=== PATIENT | male | born 1945 | race Caucasian/White ===

== ENCOUNTER 2017-02-01 09:07 | Observation (INO) ==
--- NOTE | 2017-02-01 09:23 | Emergency Department Note ---
Disposition Clinical Impression: Generalized weakness, History of bladder cancer UTI (urinary tract infection) Qualifiers: Urinary tract infection type: acute cystitis Hematuria presence: without hematuria Qualified Code(s): N30.00 - Acute cystitis without hematuria Disposition: Admitted As Inpatient Condition: Good General Adult HPI - General Chief complaint: ED Altered Mental Status Stated complaint: AMS Time Seen by Provider: 02/01/17 09:17 Source: patient, EMS Mode of arrival: EMS Limitations: no limitations, altered mental status Nursing Notes Reviewed: Yes Vital Signs Reviewed: Yes - History of Present Illness HPI Narrative: Pt is a 71-year-old white male who resides at a correction with a history of COPD and dementia who is brought to us by EMS this morning for fall. The squad report prior to EMS arrival stated questionable stroke but medics report that when they arrived to the correction staff stated that he was able to independently get up from his fall he is having no neurologic deficits and that they were concerned and wanted him checked out for his fall. Patient arrives awake alert and oriented 2, answering questions appropriately with no focal neurologic deficits on exam. Patient has no complaints on arrival. Patient does not use any assisted in ventilation no walkers or cane, states that he "just fell". Patient denies any pain or injuries related to the fall. Patient denies hitting his head or having any neck or back pain. Patient can tell me who he is where he is but is not sure what date it is of the week. Patient's speech is clear. Patient denies any dizziness lightheadedness and near-syncope or syncopal episodes which caused his fall. Currently patient denies any form of pain or discomfort, denies any chest pain pressure or heaviness, no shortness of breath, no diaphoresis, no nausea vomiting, no abdominal pain or back pain, no extremity pain or injury, with no obvious deformity noted. Patient was able to stand up independently in transfer himself in the room to the cot. Performed a detailed neuro assessment on patient arrival in patient with no focal neurologic deficits on examination and no complaints. Patient is on 2 L nasal cannula oxygen at all times so he was placed on 2 L on arrival. Patient has an occasional coarse sounding cough and coarse breathing with wheezing but denies any shortness of breath and no tachypnea. Pain Scale: 0 - Related Data Allergies Allergy/AdvReac Type Severity Reaction Status Date / Time No Known Allergies Allergy Verified 02/01/17 09:13 All systems ED: reviewed and negative except as stated. Constitutional: Denies: fever, chills Eyes: Denies: eye pain, vision change ENT ED: Denies: congestion Cardiovascular: Denies: chest pain, palpitations, dyspnea on exertion, orthopnea , edema, syncope Respiratory: Reports: cough. Denies: dyspnea, wheezes Gastrointestinal: Denies: abdominal pain, nausea, vomiting, diarrhea, melena, hematochezia Genitourinary: Denies: urgency, dysuria, frequency Musculoskeletal: Denies: back pain, neck pain, joint swelling, arthralgia, myalgia Integumentary: Denies: rash, abrasion Neurological: Denies: headache, weakness, numbness, paresthesias, confusion, abnormal gait, vertigo Psychiatric: Denies: anxiety, depression Hematological/Lymphatic: Denies: easy bleeding, easy bruising Allergic/Immunologic: Denies: urticaria Past Medical History - Past Medical History Medical history: Reports: COPD, dementia, hyperlipidemia, kidney stones, other - Social History Smoking Status: Current every day smoker Alcohol use: Reports: none Drug use: Reports: none Physical Exam - General Limitations: no limitations General appearance: alert, in no apparent distress - Head Head exam: atraumatic, normocephalic, normal inspection - Eye Eye exam: Present: normal appearance, PERRL, EOMI, miosis. Absent: mydriasis, periorbital swelling, periorbital tenderness - ENT ENT exam: normal exam, normal oropharynx, mucous membranes moist, TM's normal bilaterally - Neck Neck exam: Present: normal inspection, full ROM, trachea midline. Absent: tenderness, lymphadenopathy, thyromegaly - Chest Chest inspection: Present: normal inspection, symmetric chest wall rise. Absent : tenderness, rash - Respiratory Respiratory exam: Present: wheezes. Absent: respiratory distress, stridor, accessory muscle use - Cardiovascular Cardiovascular exam: Present: regular rate, normal rhythm, normal heart sounds - Abdominal Exam Abdominal exam: Present: soft, Non-Tender, normal bowel sounds. Absent: tenderness, distention, guarding, rebound, rigidity - Rectal Exam Rectal exam: Present: deferred - Extremities Exam Extremities exam: Present: normal inspection, full ROM, normal capillary refill. Absent: tenderness, pedal edema, joint swelling, calf tenderness - Back Exam Back exam: Present: normal inspection, full ROM, other (No tenderness to palpation throughout CT and L-spines, no areas of ecchymosis or contusion noted to the back). Absent: tenderness, CVA tenderness (R), CVA tenderness (L), paraspinal tenderness, vertebral tenderness - Neurological Exam Neurological exam: Present: alert, CN II-XII intact, normal gait, reflexes normal, other (Patient's speech is clear, no focal neurologic deficits, no weakness comparing right to left in the upper and lower extremities. Normal cerebellar testing.). Absent: motor sensory deficit - Psychiatric Psychiatric exam: Present: normal affect, normal mood - Skin Skin exam: Present: warm, dry, other. Absent: diaphoresis, erythema (No abrasions or contusions or areas of ecchymosis.) Course Course Narrative: Patient is a 71-year-old white male brought to us by EMS this morning status post fall. Medics deny any acute neurologic changes on their arrival to the correction. Patient arrives awake alert and oriented 2 able to answer questions appropriately with clear speech, with no focal neurologic deficits on examination. Patient denies any complaints at this time and actually states that he did not want to come to the emergency department. Patient does recall falling and denies any preceding symptoms that contributed to the fall and was able to get up independently and had no injuries related to a fall. She does have a baseline history of mild dementia so unclear but EMS insist that the staff state his mental status is at baseline for him currently he was not drowsy or altered, unclear as to why concerns for stroke were mentioned but EMS states patient has had stable mental status since their arrival to the correction he was not altered or unilaterally weak or with slurred speech on their arrival. This time we will go ahead and do an assessment of the patient's. - Reevaluation(s) Reevaluation #1: Contacted correction in which the patient resides and spoke to someone with his caregivers. Apparently they were concerned that he was having worsening infection. He was diagnosed with urinary tract infection 2 days ago and started on Cipro. He is tolerating the antibiotic well. They said last night he got up to go to the bathroom and was unsteady just generally weak and no slurred speech or concerned with focal deficits. Staff said that they normally do not have to assist him with ambulation. This morning he had a similar incident except when he was walking back towards his bed he fell. Did not sustain any injury but they said that they do not typically have to assist him and that they do not really provide that level of care at the correction. Patient also has a history of recently diagnosed bladder cancer was told he has a mass in his bladder and is awaiting further evaluation by urology. Patient's been hemodynamically stable throughout his ED course here just some general weakness which we also noticed when assisted him up to in relation to obtain a urine sample. At this time we will go ahead and cover the patient with Rocephin IV as despite over 48 hours of antibiotics his urine still looks consistent with a UTI. We will also send the urine for culture. Remainder of his workup here in the emergency Department unremarkable. CT head is negative. We will admit the patient for further evaluation of his urinary tract infection as well as possible placement upon discharge to transition back to his correction and is feeling better. Vital Signs Temperature 98.1 F 02/01/17 09:08 Pulse Rate 86 02/01/17 09:08 Respiratory Rate 18 02/01/17 09:08 Blood Pressure 131/92 02/01/17 09:08 O2 Sat by Pulse Oximetry 99 02/01/17 09:08 Temperature 97.2 F L 02/01/17 14:54 Pulse Rate 90 02/01/17 14:54 Respiratory Rate 18 02/01/17 14:54 Blood Pressure 136/88 02/01/17 14:54 O2 Sat by Pulse Oximetry 97 02/01/17 12:17 Oxygen Delivery Oxygen Delivery Room Air Medical Decision Making - Medical Records Medical records reviewed: Yes I reviewed the patient's medical records. - Lab Data Lab results reviewed: Yes I reviewed the patient's lab results. Result diagrams: 02/01/17 09:27 02/01/17 09:27 Lab Results 02/01/17 02/01/17 02/01/17 Range/Units 09:27 09:27 09:27 WBC 13.4 H (4.3-11.1) K/mcL RBC 4.08 L (4.19-5.50) M/mcL Hgb 13.0 (12.9-16.9) g/dL Hct 41.7 (37.5-50.1) % MCV 102.2 H (83.0-100.0) fL MCH 31.9 (28.0-33.3) pg MCHC 31.2 L (31.6-35.5) g/dL RDW 13.7 (11.5-14.5) % Plt Count 207 (140-400) K/mcL MPV 10.9 (9.4-12.4) fL Immature Gran % 0.6 (0-4) % Seg Neutrophils % 80.0 % Lymphocytes % 9.4 % Monocytes % 8.9 % Eosinophils % 0.7 % Basophils % 0.4 % Neutrophils # 10.7 H (1.6-8.9) K/mcL Lymphocytes # 1.3 (0.6-4.6) K/mcL Monocytes # 1.2 (0.0-1.3) K/mcL Eosinophils # 0.1 (0.0-0.6) K/mcL Basophils # 0.1 (0.0-0.2) K/mcL PT 12.9 H (9.4-12.1) Seconds INR 1.2 APTT 26.2 (26.0-36.0) Seconds Sodium 145 (136-145) mEq/L Potassium 4.0 (3.5-4.5) mEq/L Chloride 105 (98-109) mEq/L Carbon Dioxide 33 H (19-29) mEq/L BUN 16 (8-26) mg/dL Creatinine 1.10 (0.72-1.25) mg/dL Est GFR ( Amer) > 60 (> 60) Est GFR (Non-Af Amer) > 60 (> 60) BUN/Creatinine Ratio 15 (6-26) Glucose 121 H (70-99) mg/dL Calculated Osmolality 302 H (280-300) Calcium 9.6 (8.6-10.8) mg/dL Total Bilirubin 0.4 (0.2-1.2) mg/dL Direct Bilirubin 0.2 (0.0-0.5) mg/dL Indirect Bilirubin 0.2 (0.0-1.2) mg/dL AST 23 (5-34) Units/L ALT 19 (0-55) Units/L Alkaline Phosphatase 78 (38-126) Units/L Troponin I (0-0.03) ng/mL Serum Total Protein 7.6 (6.0-8.3) g/dL Albumin 3.1 L (3.5-5.0) g/dL Globulin 4.5 H (2.4-3.5) g/dL Albumin/Globulin Ratio 0.7 L (1.1-2.2) TSH (0.350-4.840) mcIU/mL Urine Color (Yellow) Urine Clarity (Clear) Urine pH (5.0-8.0) pH Units Ur Specific Buna (1.010-1.025) Urine Protein (Neg-Trace) mg/dL Urine Glucose (UA) (Normal) mg/dL Urine Ketones (Negative) mg/dL Urine Blood (Negative) Urine Nitrite (Negative) Urine Bilirubin (Negative) Urine Urobilinogen (Normal) mg/dL Ur Leukocyte Esterase (Negative) Urine Microscopic RBC (0-3) per hpf Urine Microscopic WBC (0-3) per hpf Ur Squamous Epith Cells (None-Few) per lpf Urine Bacteria (None-Few) per hpf Hyaline Casts (None-Few) per lpf Ur Culture Indicated? (NO) Urine Opiates Screen (Irbwln=623) ng/mL Ur Barbiturates Screen (Ditftz=860) ng/mL Ur Phencyclidine Scrn (Cutoff=25) ng/mL Ur Amphetamines Screen (Kigafr=6953) ng/mL U Benzodiazepines Scrn (Rkzjmt=750) ng/mL Urine Cocaine Screen (Cutoff= 300) ng/mL U Marijuana (THC) Screen (Cutoff = 50) ng/mL Ethyl Alcohol < 10 (0-10) mg/dL 02/01/17 02/01/17 02/01/17 Range/Units 09:27 09:27 11:30 WBC (4.3-11.1) K/mcL RBC (4.19-5.50) M/mcL Hgb (12.9-16.9) g/dL Hct (37.5-50.1) % MCV (83.0-100.0) fL MCH (28.0-33.3) pg MCHC (31.6-35.5) g/dL RDW (11.5-14.5) % Plt Count (140-400) K/mcL MPV (9.4-12.4) fL Immature Gran % (0-4) % Seg Neutrophils % % Lymphocytes % % Monocytes % % Eosinophils % % Basophils % % Neutrophils # (1.6-8.9) K/mcL Lymphocytes # (0.6-4.6) K/mcL Monocytes # (0.0-1.3) K/mcL Eosinophils # (0.0-0.6) K/mcL Basophils # (0.0-0.2) K/mcL PT (9.4-12.1) Seconds INR APTT (26.0-36.0) Seconds Sodium (136-145) mEq/L Potassium (3.5-4.5) mEq/L Chloride (98-109) mEq/L Carbon Dioxide (19-29) mEq/L BUN (8-26) mg/dL Creatinine (0.72-1.25) mg/dL Est GFR ( Amer) (> 60) Est GFR (Non-Af Amer) (> 60) BUN/Creatinine Ratio (6-26) Glucose (70-99) mg/dL Calculated Osmolality (280-300) Calcium (8.6-10.8) mg/dL Total Bilirubin (0.2-1.2) mg/dL Direct Bilirubin (0.0-0.5) mg/dL Indirect Bilirubin (0.0-1.2) mg/dL AST (5-34) Units/L ALT (0-55) Units/L Alkaline Phosphatase (38-126) Units/L Troponin I 0.02 (0-0.03) ng/mL Serum Total Protein (6.0-8.3) g/dL Albumin (3.5-5.0) g/dL Globulin (2.4-3.5) g/dL Albumin/Globulin Ratio (1.1-2.2) TSH 1.666 (0.350-4.840) mcIU/mL Urine Color Dark Yellow (Yellow) Urine Clarity Cloudy A (Clear) Urine pH 6.0 (5.0-8.0) pH Units Ur Specific Buna 1.030 H (1.010-1.025) Urine Protein 100 H (Neg-Trace) mg/dL Urine Glucose (UA) Normal (Normal) mg/dL Urine Ketones Negative (Negative) mg/dL Urine Blood Large H (Negative) Urine Nitrite Negative (Negative) Urine Bilirubin Small H (Negative) Urine Urobilinogen Normal (Normal) mg/dL Ur Leukocyte Esterase Moderate H (Negative) Urine Microscopic RBC TNTC H (0-3) per hpf Urine Microscopic WBC TNTC H (0-3) per hpf Ur Squamous Epith Cells Moderate H (None-Few) per lpf Urine Bacteria Moderate H (None-Few) per hpf Hyaline Casts None Seen (None-Few) per lpf Ur Culture Indicated? YES A (NO) Urine Opiates Screen (Ayabrr=744) ng/mL Ur Barbiturates Screen (Himmid=286) ng/mL Ur Phencyclidine Scrn (Cutoff=25) ng/mL Ur Amphetamines Screen (Nyczek=5906) ng/mL U Benzodiazepines Scrn (Hfqseh=505) ng/mL Urine Cocaine Screen (Cutoff= 300) ng/mL U Marijuana (THC) Screen (Cutoff = 50) ng/mL Ethyl Alcohol (0-10) mg/dL 02/01/17 Range/Units 11:30 WBC (4.3-11.1) K/mcL RBC (4.19-5.50) M/mcL Hgb (12.9-16.9) g/dL Hct (37.5-50.1) % MCV (83.0-100.0) fL MCH (28.0-33.3) pg MCHC (31.6-35.5) g/dL RDW (11.5-14.5) % Plt Count (140-400) K/mcL MPV (9.4-12.4) fL Immature Gran % (0-4) % Seg Neutrophils % % Lymphocytes % % Monocytes % % Eosinophils % % Basophils % % Neutrophils # (1.6-8.9) K/mcL Lymphocytes # (0.6-4.6) K/mcL Monocytes # (0.0-1.3) K/mcL Eosinophils # (0.0-0.6) K/mcL Basophils # (0.0-0.2) K/mcL PT (9.4-12.1) Seconds INR APTT (26.0-36.0) Seconds Sodium (136-145) mEq/L Potassium (3.5-4.5) mEq/L Chloride (98-109) mEq/L Carbon Dioxide (19-29) mEq/L BUN (8-26) mg/dL Creatinine (0.72-1.25) mg/dL Est GFR ( Amer) (> 60) Est GFR (Non-Af Amer) (> 60) BUN/Creatinine Ratio (6-26) Glucose (70-99) mg/dL Calculated Osmolality (280-300) Calcium (8.6-10.8) mg/dL Total Bilirubin (0.2-1.2) mg/dL Direct Bilirubin (0.0-0.5) mg/dL Indirect Bilirubin (0.0-1.2) mg/dL AST (5-34) Units/L ALT (0-55) Units/L Alkaline Phosphatase (38-126) Units/L Troponin I (0-0.03) ng/mL Serum Total Protein (6.0-8.3) g/dL Albumin (3.5-5.0) g/dL Globulin (2.4-3.5) g/dL Albumin/Globulin Ratio (1.1-2.2) TSH (0.350-4.840) mcIU/mL Urine Color (Yellow) Urine Clarity (Clear) Urine pH (5.0-8.0) pH Units Ur Specific Buna (1.010-1.025) Urine Protein (Neg-Trace) mg/dL Urine Glucose (UA) (Normal) mg/dL Urine Ketones (Negative) mg/dL Urine Blood (Negative) Urine Nitrite (Negative) Urine Bilirubin (Negative) Urine Urobilinogen (Normal) mg/dL Ur Leukocyte Esterase (Negative) Urine Microscopic RBC (0-3) per hpf Urine Microscopic WBC (0-3) per hpf Ur Squamous Epith Cells (None-Few) per lpf Urine Bacteria (None-Few) per hpf Hyaline Casts (None-Few) per lpf Ur Culture Indicated? (NO) Urine Opiates Screen Negative (Tjkcip=547) ng/mL Ur Barbiturates Screen Negative (Dxudtz=814) ng/mL Ur Phencyclidine Scrn Negative (Cutoff=25) ng/mL Ur Amphetamines Screen Negative (Sxkfod=8728) ng/mL U Benzodiazepines Scrn Negative (Ieogog=237) ng/mL Urine Cocaine Screen Negative (Cutoff= 300) ng/mL U Marijuana (THC) Screen Negative (Cutoff = 50) ng/mL Ethyl Alcohol (0-10) mg/dL - Radiology Data Radiology results reviewed: Yes I reviewed the patient's radiology results. Chest X-Ray 02/01/17 09:17 IMPRESSION: No acute cardiopulmonary disease. D/ / Noah Mancilla MD / Noah Mancilla MD Interpreting Provider: Noah Mancilla MD Head CT 02/01/17 09:18 IMPRESSION: Motion artifact degrades the images. There is cerebral atrophy and chronic small vessel ischemic changes. No acute intracranial abnormality. D/ / 02/01/2017 11:19:41 Sheridan Dominguez MD / Inessa King Interpreting Provider: Sheridan Dominguez MD - EKG Data EKG #1 EKG results narrative: EKG shows normal sinus rhythm at 86 bpm with no acute ST or T-wave changes.
[2017-02-01 09:34] LABS: Basophils # 0.1 K/mcL (0.0-0.2); Basophils % 0.4 %; Eosinophils # 0.1 K/mcL (0.0-0.6); Eosinophils % 0.7 %; Hematocrit 41.7 % (37.5-50.1); Immature Granulocytes % 0.6 % (0-4); Lymphocytes # 1.3 K/mcL (0.6-4.6); Lymphocytes % 9.4 %; Mean Corpuscular HGB Conc 31.2 g/dL (31.6-35.5); Mean Corpuscular Hemoglobin 31.9 pg (28.0-33.3); Mean Corpuscular Volume 102.2 fL (83.0-100.0); Mean Platelet Volume 10.9 fL (9.4-12.4); Monocytes # 1.2 K/mcL (0.0-1.3); Monocytes % 8.9 %; Neutrophils # 10.7 K/mcL (1.6-8.9); Platelet Count 207 K/mcL (140-400); Red Blood Count 4.08 M/mcL (4.19-5.50); Red Cell Distribution Width 13.7 % (11.5-14.5)
[2017-02-01 09:43] LABS: INR 1.2; Prothrombin Time 12.9 Seconds (9.4-12.1)
[2017-02-01 09:45] LABS: Activated Partial Thrombo Time 26.2 Seconds (26.0-36.0)
[2017-02-01 09:49] LABS: BUN/Creatinine Ratio 15 (6-26); Blood Urea Nitrogen 16 mg/dL (8-26); Carbon Dioxide 33 mEq/L (19-29); Chloride 105 mEq/L (98-109); Sodium 145 mEq/L (136-145)
[2017-02-01 09:50] LABS: Alanine Aminotransferase 19 Units/L (0-55); Albumin 3.1 g/dL (3.5-5.0); Albumin/Globulin Ratio 0.7 (1.1-2.2); Alkaline Phosphatase 78 Units/L (38-126); Aspartate Amino Transferase 23 Units/L (5-34); Bilirubin,Direct 0.2 mg/dL (0.0-0.5); Bilirubin,Indirect 0.2 mg/dL (0.0-1.2); Bilirubin,Total 0.4 mg/dL (0.2-1.2); Calcium 9.6 mg/dL (8.6-10.8); Globulin 4.5 g/dL (2.4-3.5); Glucose 121 mg/dL (70-99); Osmolality,Calculated 302 (280-300); Total Protein 7.6 g/dL (6.0-8.3); eGFR For African Americans > 60 (> 60); eGFR For Non-African Americans > 60 (> 60)
[2017-02-01 09:53] LABS: Ethanol < 10 mg/dL (0-10)
[2017-02-01 11:57] LABS: Bilirubin,Urine Small (Negative); Blood,Urine Large (Negative); Clarity,Urine Cloudy (Clear); Color,Urine Dark Yellow (Yellow); Glucose,Urine (UA) Normal (Normal); Ketones,Urine Negative (Negative); Leukocyte Esterase,Urine Moderate (Negative); Nitrite,Urine Negative (Negative); Protein,Urine 100 mg/dL (Neg-Trace); Urobilinogen,Urine Normal (Normal)
[2017-02-01 11:58] LABS: Bacteria,Urine Moderate per hpf (None-Few); Hyaline Casts,Urine None Seen per lpf (None-Few); RBC,Urine TNTC per hpf (0-3); Squamous Epithelial Cell,Urine Moderate per lpf (None-Few); WBC,Urine TNTC per hpf (0-3)
[2017-02-01 12:06] LABS: Amphetamine Screen,Urine Negative ng/mL (Cutoff=1000); Barbiturate Screen,Urine Negative ng/mL (Cutoff=200); Benzodiazepines Screen,Urine Negative ng/mL (Cutoff=200); Cannabinoid Screen,Urine Negative ng/mL (Cutoff = 50); Cocaine Screen,Urine Negative ng/mL (Cutoff= 300); Opiate Screen,Urine Negative ng/mL (Cutoff=300); Phencyclidine Screen,Urine Negative ng/mL (Cutoff=25)
[2017-02-01] MEDS ORDERED: Naloxone 0.4 MG/ML INJ IVP PRN (14:24)
[2017-02-01] MEDS ORDERED: Acetaminophen 325 MG TABLET PO PRN (14:24)
--- NOTE | 2017-02-01 14:29 | Internal Med History&Physical ---
<Kathy Dhaliwal M - Last Filed: 02/01/17 14:26> Date of Encounter: 02/01/17 Time of Encounter: 14:27 Assessment and Plan (1) UTI (urinary tract infection) Current visit: Yes Status: Acute UA consistent with UTI. WBC elevated to 13.4. Patient denies any dysuria or complaints. Rocephin IVPB daily. Qualifiers: Urinary tract infection type: acute cystitis Hematuria presence: without hematuria Qualified Code(s): N30.00 - Acute cystitis without hematuria (2) Dementia Current visit: Yes Status: Acute Patient with dementia. Oriented to person only. Will continue home doses of medications once reconciled and verified. 2mg Haldol IVP HS PRN for agitation. Bed alarm and fall precautions. SWK consulted for discharge planning and possible placement. Qualifiers: Dementia type: unspecified type Dementia behavioral disturbance: without behavioral disturbance Qualified Code(s): F03.90 - Unspecified dementia without behavioral disturbance (3) Fall Current visit: Yes Status: Acute Patient reportedly suffered a mechanical fall at his long term. He has dementia and does not recall falling and cannot relay the events. CT of the head showed cerebral atrophy and chronic small vessel ischemia. Exam reveals no new neurologic deficits, or evidence of trauma. Fall precautions and bed alarm. Qualifiers: Encounter type: initial encounter Qualified Code(s): W19.XXXA - Unspecified fall, initial encounter (4) COPD (chronic obstructive pulmonary disease) Current visit: Yes Status: Acute Patient with COPD diagnosis and continues to smoke. Denies shortness of breath or coughing. CXR shows no acute disease. albuterol inhaler q4hr PRN budesonide/formotorol BID Qualifiers: COPD type: unspecified COPD Qualified Code(s): J44.9 - Chronic obstructive pulmonary disease, unspecified (5) DVT prophylaxis Current visit: Yes Status: Acute sequential compression devices Internal Medicine - H&P: HPI Chief complaint: fall Admitted From: Emergency Dept Plans for Post Hospital Care: Transfer Other (long term) History of present illness: Mr. Seymour is a 71 year old male with COPD, hyperlipidemia, and dementia who resides in a long term was sent to the emergency department today after suffering a mechanical fall in his long term. Patient is a poor historian, alert and oriented 1 only, denies any complaints, and denies any recollection of his fall. Evaluation in the emergency department revealed elevated white blood cell count of 13.4, urinalysis was positive for UTI, CT of the head showed cerebral atrophy and chronic small vessel ischemic changes, chest x-ray showed no acute cardiopulmonary disease. EKG showed normal sinus rhythm. Troponin was normal at 0.02. Other labs were grossly normal. On exam, patient alert and oriented 1. Cranial nerves intact, no pronator drift, strength equal bilaterally. Heart had regular rate and rhythm, lungs clear to auscultation bilaterally. No peripheral edema. Past Med Surg Social Fam HX - Past Medical History Medical history: COPD, dementia, hyperlipidemia, kidney stones, other - Social History Smoking Status: Current every day smoker Alcohol use: none Drug use: none Current living situation: Correction - Family History Mother History Unknown: Yes Father History Unknown: Yes Internal Medicine - H&P: Meds 3 Allergy/AdvReac Type Severity Reaction Status Date / Time No Known Allergies Allergy Verified 02/01/17 09:13 All Systems PM: A 10-system review of systems was performed and is negative for pertinent findings except as documented above in the HPI. - Constitutional Constitutional: no chills, no fever(s), no night sweats - EENT Eyes: no change in vision, no discharge, no pain, no photophobia Ears: no ear discharge, no ear pain, no tinnitus Nose, mouth and throat: no dysphagia, no nasal discharge, no neck pain, no sore throat - Cardiovascular Cardiovascular ROS IM: no chest pain, no diaphoresis, no dyspnea, no lightheadedness, no palpitations, no syncope - Respiratory Respiratory: no cough, no dyspnea, no wheezing, no excessive phlegm production - Gastrointestinal Gastrointestinal: no abdominal pain, no diarrhea, no hematemesis, no hematochezia, no melena, no nausea, no vomiting - Musculoskeletal Musculoskeletal ROS IM: no numbness, no tingling - Integumentary Integumentary IM: no rash, no unusual bruising - Neurological Neurological ROS: no confusion, no convulsions, no focal weakness, no numbness, no tingling, no tremor(s) - Hematologic/Lymphatic Hematologic/Lymphatic: no easy bruising - Constitutional Vitals: Temp Pulse Resp BP Pulse Ox 98.1 F 86 18 131/92 99 02/01/17 09:08 02/01/17 09:08 02/01/17 09:08 02/01/17 09:08 02/01/17 09:08 General appearance: Present: cooperative, A&O X 1, pleasant, no acute distress - Head Head exam: Present: atraumatic, normocephalic - Eye Eye exam: Present: PERRL, conjuntiva pink, sclera anicteric Pupils: Present: PERRL - Neck Neck exam general surgery: Present: supple, trachea midline. Absent: lymphadenopathy - Respiratory Respiratory exam: Present: CTAB. Absent: accessory muscle use, rales, rhonchi, wheezes - Cardiovascular Cardiovascular exam: Present: RRR, +S1, +S2. Absent: diastolic murmur, gallop, rubs, systolic murmur - GI/Abdominal GI/Abdominal exam: Present: normal bowel sounds, soft, no peritoneal signs. Absent: distended, tenderness - Extremities Exam Extremities exam: Present: warm, radial pulses palpable and symmetrical. Absent : calf tenderness, cyanotic, pedal edema - Neurological Exam Neurological exam: Present: CN II-XII intact, no focal deficits, strengths equal and symetr throughout. Absent: pronater drift, facial droop, speech deficit - Expanded Neurological Exam Patient oriented to: Present: person Cranial Nerves: EOM's intact PM: Normal, gag reflex PM: Normal, nystagmus PM: Normal, tongue deviation PM: Normal Cerebellar function: finger to nose: Normal Neuro motor strength exam: LUE: 5, RUE: 5, LLE: 5, RLE: 5 - Skin Skin exam: Present: dry, intact Internal Med - H&P Results - Labs CBC & Chem 7: 02/01/17 09:27 02/01/17 09:27 Labs: All Lab Results (24 Hours) 02/01/17 02/01/17 02/01/17 Range/Units 09:27 09:27 09:27 WBC 13.4 H (4.3-11.1) K/mcL RBC 4.08 L (4.19-5.50) M/mcL Hgb 13.0 (12.9-16.9) g/dL Hct 41.7 (37.5-50.1) % MCV 102.2 H (83.0-100.0) fL MCH 31.9 (28.0-33.3) pg MCHC 31.2 L (31.6-35.5) g/dL RDW 13.7 (11.5-14.5) % Plt Count 207 (140-400) K/mcL MPV 10.9 (9.4-12.4) fL Immature Gran % 0.6 (0-4) % Seg Neutrophils % 80.0 % Lymphocytes % 9.4 % Monocytes % 8.9 % Eosinophils % 0.7 % Basophils % 0.4 % Neutrophils # 10.7 H (1.6-8.9) K/mcL Lymphocytes # 1.3 (0.6-4.6) K/mcL Monocytes # 1.2 (0.0-1.3) K/mcL Eosinophils # 0.1 (0.0-0.6) K/mcL Basophils # 0.1 (0.0-0.2) K/mcL PT 12.9 H (9.4-12.1) Seconds INR 1.2 APTT 26.2 (26.0-36.0) Seconds Sodium 145 (136-145) mEq/L Potassium 4.0 (3.5-4.5) mEq/L Chloride 105 (98-109) mEq/L Carbon Dioxide 33 H (19-29) mEq/L BUN 16 (8-26) mg/dL Creatinine 1.10 (0.72-1.25) mg/dL Est GFR ( Amer) > 60 (> 60) Est GFR (Non-Af Amer) > 60 (> 60) BUN/Creatinine Ratio 15 (6-26) Glucose 121 H (70-99) mg/dL Calculated Osmolality 302 H (280-300) Calcium 9.6 (8.6-10.8) mg/dL Total Bilirubin 0.4 (0.2-1.2) mg/dL Direct Bilirubin 0.2 (0.0-0.5) mg/dL Indirect Bilirubin 0.2 (0.0-1.2) mg/dL AST 23 (5-34) Units/L ALT 19 (0-55) Units/L Alkaline Phosphatase 78 (38-126) Units/L Troponin I (0-0.03) ng/mL Serum Total Protein 7.6 (6.0-8.3) g/dL Albumin 3.1 L (3.5-5.0) g/dL Globulin 4.5 H (2.4-3.5) g/dL Albumin/Globulin Ratio 0.7 L (1.1-2.2) TSH (0.350-4.840) mcIU/mL Urine Color (Yellow) Urine Clarity (Clear) Urine pH (5.0-8.0) pH Units Ur Specific [place] (1.010-1.025) Urine Protein (Neg-Trace) mg/dL Urine Glucose (UA) (Normal) mg/dL Urine Ketones (Negative) mg/dL Urine Blood (Negative) Urine Nitrite (Negative) Urine Bilirubin (Negative) Urine Urobilinogen (Normal) mg/dL Ur Leukocyte Esterase (Negative) Urine Microscopic RBC (0-3) per hpf Urine Microscopic WBC (0-3) per hpf Ur Squamous Epith Cells (None-Few) per lpf Urine Bacteria (None-Few) per hpf Hyaline Casts (None-Few) per lpf Ur Culture Indicated? (NO) Urine Opiates Screen (Qshkjq=151) ng/mL Ur Barbiturates Screen (Ixfrsw=953) ng/mL Ur Phencyclidine Scrn (Cutoff=25) ng/mL Ur Amphetamines Screen (Wdzjqp=4132) ng/mL U Benzodiazepines Scrn (Wunsjh=960) ng/mL Urine Cocaine Screen (Cutoff= 300) ng/mL U Marijuana (THC) Screen (Cutoff = 50) ng/mL Ethyl Alcohol < 10 (0-10) mg/dL 02/01/17 02/01/17 02/01/17 Range/Units 09:27 09:27 11:30 WBC (4.3-11.1) K/mcL RBC (4.19-5.50) M/mcL Hgb (12.9-16.9) g/dL Hct (37.5-50.1) % MCV (83.0-100.0) fL MCH (28.0-33.3) pg MCHC (31.6-35.5) g/dL RDW (11.5-14.5) % Plt Count (140-400) K/mcL MPV (9.4-12.4) fL Immature Gran % (0-4) % Seg Neutrophils % % Lymphocytes % % Monocytes % % Eosinophils % % Basophils % % Neutrophils # (1.6-8.9) K/mcL Lymphocytes # (0.6-4.6) K/mcL Monocytes # (0.0-1.3) K/mcL Eosinophils # (0.0-0.6) K/mcL Basophils # (0.0-0.2) K/mcL PT (9.4-12.1) Seconds INR APTT (26.0-36.0) Seconds Sodium (136-145) mEq/L Potassium (3.5-4.5) mEq/L Chloride (98-109) mEq/L Carbon Dioxide (19-29) mEq/L BUN (8-26) mg/dL Creatinine (0.72-1.25) mg/dL Est GFR ( Amer) (> 60) Est GFR (Non-Af Amer) (> 60) BUN/Creatinine Ratio (6-26) Glucose (70-99) mg/dL Calculated Osmolality (280-300) Calcium (8.6-10.8) mg/dL Total Bilirubin (0.2-1.2) mg/dL Direct Bilirubin (0.0-0.5) mg/dL Indirect Bilirubin (0.0-1.2) mg/dL AST (5-34) Units/L ALT (0-55) Units/L Alkaline Phosphatase (38-126) Units/L Troponin I 0.02 (0-0.03) ng/mL Serum Total Protein (6.0-8.3) g/dL Albumin (3.5-5.0) g/dL Globulin (2.4-3.5) g/dL Albumin/Globulin Ratio (1.1-2.2) TSH 1.666 (0.350-4.840) mcIU/mL Urine Color Dark Yellow (Yellow) Urine Clarity Cloudy A (Clear) Urine pH 6.0 (5.0-8.0) pH Units Ur Specific [place] 1.030 H (1.010-1.025) Urine Protein 100 H (Neg-Trace) mg/dL Urine Glucose (UA) Normal (Normal) mg/dL Urine Ketones Negative (Negative) mg/dL Urine Blood Large H (Negative) Urine Nitrite Negative (Negative) Urine Bilirubin Small H (Negative) Urine Urobilinogen Normal (Normal) mg/dL Ur Leukocyte Esterase Moderate H (Negative) Urine Microscopic RBC TNTC H (0-3) per hpf Urine Microscopic WBC TNTC H (0-3) per hpf Ur Squamous Epith Cells Moderate H (None-Few) per lpf Urine Bacteria Moderate H (None-Few) per hpf Hyaline Casts None Seen (None-Few) per lpf Ur Culture Indicated? YES A (NO) Urine Opiates Screen (Ndvufu=137) ng/mL Ur Barbiturates Screen (Pffwib=076) ng/mL Ur Phencyclidine Scrn (Cutoff=25) ng/mL Ur Amphetamines Screen (Iqfynu=0998) ng/mL U Benzodiazepines Scrn (Qcxvfa=782) ng/mL Urine Cocaine Screen (Cutoff= 300) ng/mL U Marijuana (THC) Screen (Cutoff = 50) ng/mL Ethyl Alcohol (0-10) mg/dL 02/01/17 Range/Units 11:30 WBC (4.3-11.1) K/mcL RBC (4.19-5.50) M/mcL Hgb (12.9-16.9) g/dL Hct (37.5-50.1) % MCV (83.0-100.0) fL MCH (28.0-33.3) pg MCHC (31.6-35.5) g/dL RDW (11.5-14.5) % Plt Count (140-400) K/mcL MPV (9.4-12.4) fL Immature Gran % (0-4) % Seg Neutrophils % % Lymphocytes % % Monocytes % % Eosinophils % % Basophils % % Neutrophils # (1.6-8.9) K/mcL Lymphocytes # (0.6-4.6) K/mcL Monocytes # (0.0-1.3) K/mcL Eosinophils # (0.0-0.6) K/mcL Basophils # (0.0-0.2) K/mcL PT (9.4-12.1) Seconds INR APTT (26.0-36.0) Seconds Sodium (136-145) mEq/L Potassium (3.5-4.5) mEq/L Chloride (98-109) mEq/L Carbon Dioxide (19-29) mEq/L BUN (8-26) mg/dL Creatinine (0.72-1.25) mg/dL Est GFR ( Amer) (> 60) Est GFR (Non-Af Amer) (> 60) BUN/Creatinine Ratio (6-26) Glucose (70-99) mg/dL Calculated Osmolality (280-300) Calcium (8.6-10.8) mg/dL Total Bilirubin (0.2-1.2) mg/dL Direct Bilirubin (0.0-0.5) mg/dL Indirect Bilirubin (0.0-1.2) mg/dL AST (5-34) Units/L ALT (0-55) Units/L Alkaline Phosphatase (38-126) Units/L Troponin I (0-0.03) ng/mL Serum Total Protein (6.0-8.3) g/dL Albumin (3.5-5.0) g/dL Globulin (2.4-3.5) g/dL Albumin/Globulin Ratio (1.1-2.2) TSH (0.350-4.840) mcIU/mL Urine Color (Yellow) Urine Clarity (Clear) Urine pH (5.0-8.0) pH Units Ur Specific [place] (1.010-1.025) Urine Protein (Neg-Trace) mg/dL Urine Glucose (UA) (Normal) mg/dL Urine Ketones (Negative) mg/dL Urine Blood (Negative) Urine Nitrite (Negative) Urine Bilirubin (Negative) Urine Urobilinogen (Normal) mg/dL Ur Leukocyte Esterase (Negative) Urine Microscopic RBC (0-3) per hpf Urine Microscopic WBC (0-3) per hpf Ur Squamous Epith Cells (None-Few) per lpf Urine Bacteria (None-Few) per hpf Hyaline Casts (None-Few) per lpf Ur Culture Indicated? (NO) Urine Opiates Screen Negative (Sojhhe=192) ng/mL Ur Barbiturates Screen Negative (Detvdo=521) ng/mL Ur Phencyclidine Scrn Negative (Cutoff=25) ng/mL Ur Amphetamines Screen Negative (Eobfbn=9255) ng/mL U Benzodiazepines Scrn Negative (Htgulp=039) ng/mL Urine Cocaine Screen Negative (Cutoff= 300) ng/mL U Marijuana (THC) Screen Negative (Cutoff = 50) ng/mL Ethyl Alcohol (0-10) mg/dL - Diagnostic Studies CT scan - head Additional comments: Head CT 02/01/17 09:18 IMPRESSION: Motion artifact degrades the images. There is cerebral atrophy and chronic small vessel ischemic changes. No acute intracranial abnormality. D/ / 02/01/2017 11:19:41 Sheridan Dominguez MD / Inessa King Interpreting Provider: Sheridan Dominguez MD Chest x-ray Additional comments: Chest X-Ray 02/01/17 09:17 IMPRESSION: No acute cardiopulmonary disease. D/ / Noah Mancilla MD / Noah Mancilla MD Interpreting Provider: Noah Mancilla MD <Roxana Morgan - Last Filed: 02/03/17 08:19> Date of Encounter: 02/01/17 Time of Encounter: 18:50 Internal Medicine - H&P: HPI History of present illness: Mr. Seymour is a 71 year old male All Systems PM: A 10-system review of systems was performed and is negative for pertinent findings except as documented above in the HPI. - Constitutional Vitals: Temp Pulse Resp BP Pulse Ox 98.2 F 72 16 127/78 96 02/03/17 07:37 02/03/17 07:37 02/03/17 07:37 02/03/17 07:37 02/03/17 07:37 Internal Med - H&P Results - Labs CBC & Chem 7: 02/03/17 06:20 02/03/17 06:20 Labs: Short CBC 02/03/17 Range/Units 06:20 WBC 8.3 (4.3-11.1) K/mcL Hgb 11.5 L (12.9-16.9) g/dL Hct 37.0 L (37.5-50.1) % Plt Count 214 (140-400) K/mcL Neutrophils # 5.5 (1.6-8.9) K/mcL BMP 02/03/17 06:20 Sodium 143 Potassium 3.6 Chloride 103 Carbon Dioxide 27 BUN 14 Creatinine 0.94 Glucose 114 H Calcium 8.9 - Attending Attestation Pt independently seen and examined. Admitted s/p fall, UTI, has underlying dementia. Will need geriatric social worker consultation for placement. Case discussed with CARLOS Dhaliwal, I agree with her documented findings, assessment,and plan.
[2017-02-01] MEDS ORDERED: Haloperidol Lactate 5 MG/ML VIAL IVP PRN (14:43)
[2017-02-01] MEDS: Ipratropium/Albuterol Neb 3 ML IH SCH ×2 (16:48→22:47)
[2017-02-01] MEDS: Budesonide/Formoterol 160/4.5 MDI IH SCH (22:47)
[2017-02-02] MEDS: Ipratropium/Albuterol Neb 3 ML IH SCH ×4 (04:02→22:55)
[2017-02-02 05:44] LABS: Basophils # 0.1 K/mcL (0.0-0.2); Basophils % 0.6 %; Eosinophils # 0.3 K/mcL (0.0-0.6); Hematocrit 37.7 % (37.5-50.1); Hemoglobin 11.9 g/dL (12.9-16.9); Immature Granulocytes % 0.3 % (0-4); Lymphocytes # 1.4 K/mcL (0.6-4.6); Lymphocytes % 15.4 %; Mean Corpuscular HGB Conc 31.6 g/dL (31.6-35.5); Mean Corpuscular Hemoglobin 31.9 pg (28.0-33.3); Mean Corpuscular Volume 101.1 fL (83.0-100.0); Mean Platelet Volume 11.7 fL (9.4-12.4); Monocytes # 0.9 K/mcL (0.0-1.3); Monocytes % 10.1 %; Neutrophils # 6.3 K/mcL (1.6-8.9); Platelet Count 201 K/mcL (140-400); Red Blood Count 3.73 M/mcL (4.19-5.50); Red Cell Distribution Width 13.7 % (11.5-14.5); Segmented Neutrophils % 70.6 %
[2017-02-02 05:57] LABS: BUN/Creatinine Ratio 16 (6-26); Blood Urea Nitrogen 15 mg/dL (8-26); Calcium 8.8 mg/dL (8.6-10.8); Chloride 106 mEq/L (98-109); Glucose 112 mg/dL (70-99); Osmolality,Calculated 302 (280-300); Potassium 3.7 mEq/L (3.5-4.5); Sodium 145 mEq/L (136-145); eGFR For African Americans > 60 (> 60); eGFR For Non-African Americans > 60 (> 60)
--- NOTE | 2017-02-02 06:21 | Electrocardiograph Report ---
[facility] Test Date: 2017-02-01 Pat Name: Landon Seymour Department: 0 Room: 3A62 Gender: M Food Service Helper: : 1945 Requested By: Perla Moore Order Number: [id number] Reading MD: Eddie Bui MD Measurements Intervals [place] Rate: 86 P: 79 MO: 155 QRS: 50 QRSD: 86 T: 59 QT: 352 QTc: 395 Interpretive Statements SINUS RHYTHM Electronically Signed On 02-02-2017 6:19:21 EDT by Eddie Bui MD
[2017-02-02 06:27] LABS: Carbon Dioxide 30 mEq/L (19-29)
[2017-02-02] MEDS: Budesonide/Formoterol 160/4.5 MDI IH SCH ×2 (10:46→22:55)
--- NOTE | 2017-02-02 13:00 | Internal Med Progress Note ---
Date of Encounter: 02/02/17 Time of Encounter: 12:58 - Assessment and plan (1) UTI (urinary tract infection) Current Visit: Yes Status: Acute Assessment and plan: Reviewed his labs and UA His WBC trending down cont empirical abx Rocephin for now will f/u on Urine cx Qualifiers: Urinary tract infection type: acute cystitis Hematuria presence: without hematuria Qualified Code(s): N30.00 - Acute cystitis without hematuria (2) Generalized weakness Current Visit: Yes Status: Acute Assessment and plan: probably due to UTI with underline dementia PT / OT eval - P (3) Physical deconditioning Current Visit: Yes Status: Acute (4) Fall Current Visit: Yes Status: Acute Qualifiers: Encounter type: initial encounter Qualified Code(s): W19.XXXA - Unspecified fall, initial encounter (5) COPD (chronic obstructive pulmonary disease) Current Visit: Yes Status: Chronic Assessment and plan: not in exacerbation cont him on Duoneb PRN and Symbicort Qualifiers: COPD type: unspecified COPD Qualified Code(s): J44.9 - Chronic obstructive pulmonary disease, unspecified (6) DVT prophylaxis Current Visit: Yes Status: Acute Assessment and plan: will put him on lovenox SQ inj - Subjective Interval history: Mr. Seymour is a 71 year old male with COPD, hyperlipidemia, and dementia who resides in a longterm was sent to the emergency department today after suffering a mechanical fall in his longterm. Patient is a poor historian, alert and oriented 1 only, denies any complaints, and denies any recollection of his fall. Evaluation in the emergency department revealed elevated white blood cell count of 13.4, urinalysis was positive for UTI, CT of the head showed cerebral atrophy and chronic small vessel ischemic changes, chest x-ray showed no acute cardiopulmonary disease. EKG showed normal sinus rhythm. Troponin was normal at 0.02. Pt was admitted for acute UTI and started him on empirical abx Rocephin. He is more alert, awake and O to self only. Seems to be pt is at his baseline mentation mendez - Constitutional Vitals: Temp Pulse Resp BP Pulse Ox 98.1 F 84 13 131/76 94 02/02/17 11:51 02/02/17 11:51 02/02/17 11:51 02/02/17 11:51 02/02/17 11:51 General appearance: Present: cooperative, A&O X 1, pleasant, no acute distress - Head Head exam: Present: atraumatic, normal inspection - Respiratory Respiratory exam: Present: decreased breath sounds, wheezes. Absent: rales, respiratory distress, rhonchi - Cardiovascular Cardiovascular exam: Present: RRR, +S1, +S2. Absent: systolic murmur - GI/Abdominal GI/Abdominal exam: Present: soft. Absent: rebound, rigid, tenderness - Extremities Exam Extremities exam: Absent: calf tenderness, pedal edema, tenderness - Psychiatric Additional comments: pleasantly demented Internal Medicine: Result - Labs CBC & Chem 7: 02/02/17 05:26 02/02/17 05:26 Labs: Short CBC 02/02/17 Range/Units 05:26 WBC 8.9 (4.3-11.1) K/mcL Hgb 11.9 L (12.9-16.9) g/dL Hct 37.7 (37.5-50.1) % Plt Count 201 (140-400) K/mcL Neutrophils # 6.3 (1.6-8.9) K/mcL BMP 02/02/17 05:26 Sodium 145 Potassium 3.7 Chloride 106 Carbon Dioxide 30 H BUN 15 Creatinine 0.95 Glucose 112 H Calcium 8.8 - ABG Interpretation ABG results: PT/INR, D-dimer PT 12.9 Seconds (9.4-12.1) H 02/01/17 09:27 Consult Discharge Plan - Plan Referrals: [facility] [Outside]
[2017-02-02] MEDS: D5% in 0.45% NACL 1,000 ML IVC SCH (13:22)
[2017-02-03] MEDS: D5% in 0.45% NACL 1,000 ML IVC SCH ×2 (00:58→19:25)
[2017-02-03] MEDS: Ipratropium/Albuterol Neb 3 ML IH SCH ×4 (04:53→22:24)
[2017-02-03 07:00] LABS: Hemoglobin 11.5 g/dL (12.9-16.9); Immature Granulocytes % 0.5 % (0-4); Lymphocytes % 18.2 %; Mean Corpuscular HGB Conc 31.1 g/dL (31.6-35.5); Mean Corpuscular Volume 99.7 fL (83.0-100.0); Mean Platelet Volume 11.5 fL (9.4-12.4); Monocytes % 10.1 %; Platelet Count 214 K/mcL (140-400); Red Blood Count 3.71 M/mcL (4.19-5.50); Red Cell Distribution Width 13.5 % (11.5-14.5); Segmented Neutrophils % 66.3 %
[2017-02-03 07:01] LABS: Basophils # 0.1 K/mcL (0.0-0.2); Basophils % 0.7 %; Eosinophils # 0.4 K/mcL (0.0-0.6); Eosinophils % 4.2 %; Lymphocytes # 1.5 K/mcL (0.6-4.6); Monocytes # 0.8 K/mcL (0.0-1.3); Neutrophils # 5.5 K/mcL (1.6-8.9)
[2017-02-03 07:18] LABS: BUN/Creatinine Ratio 15 (6-26); Blood Urea Nitrogen 14 mg/dL (8-26); Calcium 8.9 mg/dL (8.6-10.8); Carbon Dioxide 27 mEq/L (19-29); Chloride 103 mEq/L (98-109); Glucose 114 mg/dL (70-99); Osmolality,Calculated 297 (280-300); Potassium 3.6 mEq/L (3.5-4.5); Sodium 143 mEq/L (136-145); eGFR For African Americans > 60 (> 60); eGFR For Non-African Americans > 60 (> 60)
[2017-02-03] MEDS: *HR* Enoxaparin 40 MG/0.4 ML SYRINGE SQ SCH (08:25)
[2017-02-03] MEDS: Budesonide/Formoterol 160/4.5 MDI IH SCH ×2 (10:35→22:24)
--- NOTE | 2017-02-03 13:31 | Discharge Summary ---
Date of Encounter: 02/03/17 Time of Encounter: 13:29 - Discharge Diagnosis (1) Generalized weakness Priority: Primary Status: Acute (2) UTI (urinary tract infection) Priority: Primary Status: Acute Qualifiers: Urinary tract infection type: acute cystitis Hematuria presence: without hematuria Qualified Code(s): N30.00 - Acute cystitis without hematuria (3) Fall Priority: Secondary Status: Acute Qualifiers: Encounter type: initial encounter Qualified Code(s): W19.XXXA - Unspecified fall, initial encounter (4) DVT prophylaxis Priority: Secondary Status: Acute (5) COPD (chronic obstructive pulmonary disease) Priority: Secondary Status: Chronic Qualifiers: COPD type: unspecified COPD Qualified Code(s): J44.9 - Chronic obstructive pulmonary disease, unspecified (6) Physical deconditioning Priority: Secondary Status: Acute - Discharge Medications Prescriptions: Amoxicillin/Clavulanate [Augmentin] 875 mg PO BIDWM #10 tablet Home Medications: Albuterol Sulfate [Albuterol Inhaler] 2 puff IH Q4HR PRN 02/03/17 [Rx] Amoxicillin/Clavulanate [Augmentin] 875 mg PO BIDWM #10 tablet 02/03/17 [Rx] Budesonide/Formoterol 160/4.5 [Symbicort 160/4.5] 2 puff IH BIDR 02/03/17 [Rx] Allergies/Adverse Reactions: 3 Allergy/AdvReac Type Severity Reaction Status Date / Time No Known Allergies Allergy Verified 02/01/17 09:13 Date of admission: 02/01/17 13:31 Primary care physician: PCP NONE Consults: 02/01/17 14:25 Consult to Salesperson [employer] [CONS] Routine Reason for SW Consult: Patient from half-way, assist with discharge planning. 02/02/17 13:05 PT [Consult to Physical Therapy] [CONS] Routine Comment: Evaluate, develop and implement POC Reason for Consult: physical deconditioning 02/02/17 13:06 OT [Consult to Occupational Therapy] [CONS] Routine Comment: Evaluate, develop and implement POC Reason for Consult: physical deconditioning - Patient Status Disposition: Home Health Service Condition: Good Overall status at discharge: patient is back to baseline - Discharge Instructions Follow Up With: [facility] [Outside] Hospital course: Mr. Seymour is a 71 year old male with COPD, hyperlipidemia, and dementia who resides in a half-way was sent to the emergency department today after suffering a mechanical fall in his half-way. Patient is a poor historian, alert and oriented 1 only, denies any complaints, and denies any recollection of his fall. Evaluation in the emergency department revealed elevated white blood cell count of 13.4, urinalysis was positive for UTI, CT of the head showed cerebral atrophy and chronic small vessel ischemic changes, chest x-ray showed no acute cardiopulmonary disease. EKG showed normal sinus rhythm. Troponin was normal at 0.02. Pt was admitted for acute UTI and started him on empirical abx Rocephin. He is more alert, awake and O to self only. Seems to be pt is at his baseline mentation mendez. His urine cx growing enterococci penicillin sensitive, so will send him back to half-way with PO Augmentin for another 5 days. - Time Spent with Patient Total time spent providing and/or coordinating discharge services: - Constitutional Vitals: Temp Pulse Resp BP Pulse Ox 98.3 F 82 18 104/70 92 02/03/17 12:21 02/03/17 12:21 02/03/17 12:21 02/03/17 12:21 02/03/17 12:21 General appearance: Present: cooperative, A&O X 1, pleasant, no acute distress - Head Head exam: Present: atraumatic, normal inspection - Respiratory Respiratory exam: Present: decreased breath sounds, wheezes. Absent: respiratory distress, rhonchi - Cardiovascular Cardiovascular exam: Present: RRR, +S1, +S2. Absent: systolic murmur - Extremities Exam Extremities exam: Absent: calf tenderness, pedal edema, tenderness - Neurological Exam Neurological exam: Present: alert - Psychiatric Additional comments: pleasantly demented
[2017-02-04] MEDS: Ipratropium/Albuterol Neb 3 ML IH SCH ×2 (04:20→11:36)
[2017-02-04] MEDS: *HR* Enoxaparin 40 MG/0.4 ML SYRINGE SQ SCH (07:58)
[2017-02-04] MEDS: D5% in 0.45% NACL 1,000 ML IVC SCH (09:45)
[2017-02-04 10:53] VITALS: BP 117/73
[2017-02-04] MEDS: Budesonide/Formoterol 160/4.5 MDI IH SCH (11:36)
--- NOTE | 2017-02-04 12:35 | Internal Med Progress Note ---
Date of Encounter: 02/04/17 Time of Encounter: 12:32 - Assessment and plan (1) Generalized weakness Current Visit: Yes Status: Acute Assessment and plan: probably due to UTI with underline dementia PT / OT recommend to go to ECF, but pt refused to go to ECF Due to his dementia probably he is going to do better at detention only so will d/c him to detention today with home PT / OT services. (2) UTI (urinary tract infection) Current Visit: Yes Status: Acute Assessment and plan: Reviewed his labs and UA Urine cx growing enterococci -- hanged abx to Augmentin Qualifiers: Urinary tract infection type: acute cystitis Hematuria presence: without hematuria Qualified Code(s): N30.00 - Acute cystitis without hematuria (3) Fall Current Visit: Yes Status: Acute Qualifiers: Encounter type: initial encounter Qualified Code(s): W19.XXXA - Unspecified fall, initial encounter (4) DVT prophylaxis Current Visit: Yes Status: Acute Assessment and plan: will put him on lovenox SQ inj (5) COPD (chronic obstructive pulmonary disease) Current Visit: Yes Status: Chronic Assessment and plan: not in exacerbation cont him on Duoneb PRN and Symbicort Qualifiers: COPD type: unspecified COPD Qualified Code(s): J44.9 - Chronic obstructive pulmonary disease, unspecified (6) Physical deconditioning Current Visit: Yes Status: Acute - Subjective Interval history: Mr. Seymour is a 71 year old male with COPD, hyperlipidemia, and dementia who resides in a detention was sent to the emergency department today after suffering a mechanical fall in his detention. Patient is a poor historian, alert and oriented 1 only, denies any complaints, and denies any recollection of his fall. Evaluation in the emergency department revealed elevated white blood cell count of 13.4, urinalysis was positive for UTI, CT of the head showed cerebral atrophy and chronic small vessel ischemic changes, chest x-ray showed no acute cardiopulmonary disease. EKG showed normal sinus rhythm. Troponin was normal at 0.02. Pt was admitted for acute UTI and started him on empirical abx Rocephin. He is more alert, awake and O to self only. Seems to be pt is at his baseline mentation mendez. - Constitutional Vitals: Temp Pulse Resp BP Pulse Ox 98.2 F 83 18 117/73 95 02/04/17 10:52 02/04/17 10:52 02/04/17 10:52 02/04/17 10:52 02/04/17 10:52 General appearance: Present: cooperative, A&O X 1, pleasant, no acute distress - Head Head exam: Present: atraumatic, normal inspection - Respiratory Respiratory exam: Present: decreased breath sounds, wheezes. Absent: respiratory distress, rhonchi - Cardiovascular Cardiovascular exam: Present: RRR, +S1, +S2. Absent: systolic murmur - Extremities Exam Extremities exam: Absent: calf tenderness, pedal edema, tenderness - Psychiatric Additional comments: pleasantly demented Internal Medicine: Result - Labs CBC & Chem 7: 02/03/17 06:20 02/03/17 06:20 - ABG Interpretation ABG results: PT/INR, D-dimer PT 12.9 Seconds (9.4-12.1) H 02/01/17 09:27 Consult Discharge Plan - Plan Instructions: Urinary Tract Infection in Men (DC) Referrals: [facility] [Outside] - 02/10/17 10:15 am Prescriptions: Amoxicillin/Clavulanate [Augmentin] 875 mg PO BIDWM #10 tablet
--- NOTE | 2017-02-04 12:36 | Physician Discharge Referral ---
Home Health/Hosp Referral Info Transfer to: Home Health Provider in Charge Post Discharge: PCP - Diagnosis (1) Generalized weakness Status: Acute (2) UTI (urinary tract infection) Status: Acute (3) Fall Status: Acute (4) DVT prophylaxis Status: Acute (5) COPD (chronic obstructive pulmonary disease) Status: Chronic (6) Physical deconditioning Status: Acute - Respiratory Orders Smoking Cessation: Smoking cessation has been advised. For more information, call the [place] Tobacco Quit Line at 3-280-IBVD-NOW. - Activity Activity Orders: Up ad vero - Services Needed Following services are medically necessary services: Nursing, Physical Therapy, Occupational Therapy - Transfer Medications Prescriptions: Amoxicillin/Clavulanate [Augmentin] 875 mg PO BIDWM #10 tablet Home Medications: Albuterol Sulfate [Albuterol Inhaler] 2 puff IH Q4HR PRN 02/03/17 [Rx] Amoxicillin/Clavulanate [Augmentin] 875 mg PO BIDWM #10 tablet 02/03/17 [Rx] Budesonide/Formoterol 160/4.5 [Symbicort 160/4.5] 2 puff IH BIDR 02/03/17 [Rx] Allergies/Adverse Reactions: 3 Allergy/AdvReac Type Severity Reaction Status Date / Time No Known Allergies Allergy Verified 02/01/17 09:13 Certification: Further, I certify that my clinical findings support that this patient is homebound (i.e. absences from home require considerable and taxing effort and are for medical reasons or gnosticist services or infrequently or short duration when for other reasons) because: Homebound Reason: Patient requires assistance of a person or device to safely leave home Attestation: My signature below is to certify that this patient is under my care and that I, or nurse practitioner, or a physician's grants and contracts assistant working with me, has a face-to -face encounter with this patient.
== END 2017-02-04 12:42 | disposition home health service (06) ==
LOC: 3ANU 09:07 → EMEROO 09:07 → MERGE 13:31 → 3ANU 14:29
PROVIDERS: ADMIT Internal Medicine; ATTEND Internal Medicine